=== PATIENT | female | born 1940 | race Caucasian/White ===

== ENCOUNTER 2021-08-10 11:24 | Outpatient (CLI) | payer MEDICARE, SELFPAY ==
[2021-08-10 19:25] LABS: Basophils Absolute Auto 0.1 K/mm3 (0.0-0.1); Basophils Percent Auto 0.9 % (0.2-1.2); Eosinophils Absolute Auto 0.3 K/mm3 (0-0.3); Eosinophils Percent Auto 3.5 % (0-4.4); Hematocrit 45.4 % (37.0-47.0); Hemoglobin 14.9 g/dL (12.0-15.0); Immature Granulocyte Absolute 0.02 K/mm3 (0.00-0.031); Immature Granulocyte Percent A 0.2 % (0-0.5); Lymphocytes Absolute Auto 2.76 K/mm3 (0.9-3.2); Lymphocytes Percent Auto 30.9 % (18.3-44.2); Mean Corpuscular HGB Conc 32.8 g/dl (32-36); Mean Corpuscular Hemoglobin 32.3 pg (26-34); Mean Corpuscular Volume 98.3 fl (80-100); Mean Platelet Volume 10.8 fl (7.4-10.4); Monocytes Absolute Auto 0.7 K/mm3 (0.1-0.6); Monocytes Percent Auto 7.7 % (2.6-8.5); Neutrophils Absolute Auto 5.1 K/mm3 (1.3-6.7); Neutrophils Percent Auto 56.8 % (45.5-73.1); Platelet Count Result 319 k/mm3 (150-375); Red Blood Count 4.62 M/mm3 (4.2-5.4); Red Cell Distribution Width 14.4 % (11.5-14.5); White Blood Count 8.9 K/mm3 (4.5-10.0)
[2021-08-10 19:45] LABS: Creatinine Urine 21.4 mg/dL
[2021-08-10 19:48] LABS: Add Urine Microscopic? YES; Appearance Urine Clear (Clear); Bacteria Urine Trace /hpf; Bilirubin Urine Negative (Negative); Blood Urine Negative (Negative); Color Urine Yellow (Yellow); Glucose Urine UA Negative (Negative); Ketones Urine Negative (Negative); Leukocyte Esterase Ur Negative LEU/UL (NEGATIVE); Nitrate Urine Negative (Negative); Protein Urine 1+ mg/dL (Negative); RBC Urine 0-2 /hpf (0-2); Specific Grav Ur 1.005 (1.001-1.035); Urobilinogen Urine Negative mg/dL (<2.0)
[2021-08-10 19:52] LABS: Alanine Aminotransferase 34 U/L (4-35); Albumin Level 5.2 g/dL (3.5-5.1); Alkaline Phosphatase 85 U/L (38-126); Anion Gap 14 mmol/L (8-16); Aspartate Amino Transferase 39 U/L (14-36); Bilirubin,Total 0.7 mg/dL (0.2-1.3); Blood Urea Nitrogen 14 mg/dL (7-17); Calcium 11.3 mg/dL (8.4-10.2); Carbon Dioxide 24 mmol/L (22-30); Chloride 103 mmol/L (98-107); Cholesterol 220 mg/dL (0-200); Estimated Glomerular Filt Rate > 60; Glucose 137 mg/dL (65-110); HDL Direct 80 mg/dL; Potassium 4.6 mmol/L (3.4-5.0); Sodium 141 mmol/L (137-145); Triglycerides 215 mg/dL (<150)
[2021-08-10 20:05] LABS: LDL Cholesterol Direct 101 mg/dL
[2021-08-10 20:16] LABS: MALB Creatinine Ratio 1700.5 mg/g (0-30); Microalbumin Urine Random 363.9 mg/L (0-16.7)
[2021-08-10 20:39] LABS: Hemoglobin A1C 6.8 % (<5.7)
== END 2021-08-10 11:25 | disposition home or self-care (01) ==
PROVIDERS: PCP Family Medicine; Visit Provider Family Medicine
DX: E11.9 Type 2 diabetes mellitus without complications (principal); E78.5 Hyperlipidemia, unspecified; I10 Essential (primary) hypertension; E03.9 Hypothyroidism, unspecified; N30.90 Cystitis, unspecified without hematuria
CPT/HCPCS: 36415; 80053; 80061; 81001; 82043; 83036; 84443; 85025; 87077; 87086; 87088; 87186

== ENCOUNTER 2021-09-02 10:26 | Outpatient (CLI) | payer MEDICARE, SELFPAY ==
[2021-09-02 19:45] LABS: Add Urine Microscopic? YES; Appearance Urine Cloudy (Clear); Bacteria Urine Trace /hpf; Bilirubin Urine Negative (Negative); Blood Urine Negative (Negative); Color Urine Amber (Yellow); Glucose Urine UA Negative (Negative); Ketones Urine Negative (Negative); Leukocyte Esterase Ur 2+ LEU/UL (NEGATIVE); Mucus Urine Rare /lpf; Nitrate Urine Negative (Negative); Protein Urine Negative (Negative); RBC Urine 0-2 /hpf (0-2); Urobilinogen Urine Negative mg/dL (<2.0); WBC Urine 31-50 /hpf (0-3)
== END 2021-09-02 10:27 | disposition home or self-care (01) ==
LOC: ANHBWCLAB 10:27
PROVIDERS: PCP Family Medicine; Visit Provider Family Medicine
DX: N30.90 Cystitis, unspecified without hematuria (principal)
CPT/HCPCS: 81001; 87077; 87086; 87186

== ENCOUNTER 2021-11-08 10:28 | Outpatient (CLI) | payer MEDICARE, SELFPAY ==
[2021-11-08 20:16] LABS: Add Urine Microscopic? YES; Appearance Urine Clear (Clear); Bilirubin Urine Negative (Negative); Blood Urine Negative (Negative); Color Urine Yellow (Yellow); Glucose Urine UA Negative (Negative); Ketones Urine Trace mg/dL (Negative); Leukocyte Esterase Ur Trace LEU/UL (NEGATIVE); Nitrate Urine Negative (Negative); Protein Urine Negative (Negative); Specific Grav Ur 1.025 (1.001-1.035); Urobilinogen Urine 0.2 mg/dL (<2.0); pH Urine 5.5 (5.0-9.0)
[2021-11-08 20:19] LABS: Hematocrit 42.9 % (37.0-47.0); Hemoglobin 13.4 g/dL (12.0-15.0); Mean Corpuscular HGB Conc 31.2 g/dl (32-36); Mean Corpuscular Hemoglobin 31.2 pg (26-34); Mean Platelet Volume 10.5 fl (7.4-10.4); Platelet Count Result 279 k/mm3 (150-375); Red Blood Count 4.29 M/mm3 (4.2-5.4); Red Cell Distribution Width 14.6 % (11.5-14.5); White Blood Count 6.3 K/mm3 (4.5-10.0)
[2021-11-08 20:25] LABS: Anion Gap 10 mmol/L (8-16); Blood Urea Nitrogen 25 mg/dL (7-17); Calcium 10.1 mg/dL (8.4-10.2); Carbon Dioxide 26 mmol/L (22-30); Chloride 102 mmol/L (98-107); Estimated Glomerular Filt Rate 53; Glucose 154 mg/dL (65-110); Potassium 4.6 mmol/L (3.4-5.0); Sodium 138 mmol/L (137-145)
[2021-11-08 20:26] LABS: Alanine Aminotransferase 25 U/L (6-35); Albumin Level 4.6 g/dL (3.5-5.1); Alkaline Phosphatase 76 U/L (38-126); Anion Gap 9 mmol/L (8-16); Aspartate Amino Transferase 28 U/L (14-36); Bilirubin,Total 0.5 mg/dL (0.2-1.3); Blood Urea Nitrogen 25 mg/dL (7-17); Calcium 10.2 mg/dL (8.4-10.2); Carbon Dioxide 28 mmol/L (22-30); Chloride 101 mmol/L (98-107); Estimated Glomerular Filt Rate 53; Glucose 154 mg/dL (65-110); Potassium 4.6 mmol/L (3.4-5.0); Sodium 138 mmol/L (137-145)
[2021-11-08 20:35] LABS: Parathyroid Intact 7.8 pg/mL (7.5-53.5)
[2021-11-12 05:29] LABS: Ionized Calcium 5.3 mg/dL (4.8-5.6)
[2021-11-18 12:07] LABS: Parathyroid Hormone Related Pr 12 pg/mL (11-20)
== END 2021-11-08 10:29 | disposition home or self-care (01) ==
PROVIDERS: PCP Family Medicine; Visit Provider Family Medicine
DX: E83.52 Hypercalcemia (principal); R79.89 Other specified abnormal findings of blood chemistry; R42 Dizziness and giddiness; N30.90 Cystitis, unspecified without hematuria
CPT/HCPCS: 36415; 80048; 80053; 81001; 82248; 82330; 83519; 83970; 85027; 87077; 87086; 87186

== ENCOUNTER 2022-04-13 09:51 | Outpatient (CLI) | payer MEDICARE, SELFPAY ==
--- NOTE | ~2022-04-13 | DEXA_ITS ---
Bone Density Report Name: CARLOS PAYTON Age: 81 Sex: Female Ethnicity: White Date of : 1940 Indication: postmenopausal; screening for osteoporosis; height loss; Referring Provider: AMILCAR VEGA Study: Bone densitometry was performed. Exam Date: April 13, 2022 Accession number: [id number] Bone Density: Region BMD T-score Z-score Classification AP Spine(L1-L4) 1.180 1.2 3.9 Normal Femoral Neck (Left) 0.785 -0.6 1.7 Normal Total Hip (Left) 0.850 -0.8 1.3 Normal Femoral Neck (Right) 0.663 -1.7 0.6 Osteopenia Total Hip (Right) 0.780 -1.3 0.7 Osteopenia Total Hip Mean 0.815 -1.1 1.0 Osteopenia World Health Organization criteria for BMD impression classify patients as: Normal (T-score at or above -1.0), Osteopenia (T-score between -1.0 and -2.5), or Osteoporosis (T-score at or below -2.5). 10-year Fracture Risk(1): Major Osteoporotic Fracture 14% Hip Fracture 3.4% Reported Risk Factors: [place] (), Neck BMD=0.663, BMI=28.8 (1) FRAX(R) Version 3.08. Fracture probability calculated for an untreated patient. Fracture probability may be lower if the patient has received treatment. Clinical Information Provided by Patient: Has used the following medications: Vitamin D Patient maximum height was 66 Menopause Age: 57 No regular weight bearing exercise Onset of menses at age 14 Number of children 4 Impression: The patient has low bone mass, based on the Right Femoral Neck T-score. The patient has an estimated ten-year risk of hip fracture of 3.4% and an estimated ten-year risk of major fracture of 14%, based on the WHO FRAX algorithm. Discussion: BONE DENSITY IS LOW AT ONE OR MORE SKELETAL SITES. THE PATIENT'S BMD AND CLINICAL RISK FACTORS CONTRIBUTE TO THIS PATIENT'S INCREASED RISK OF FRACTURE. This patient's lowest T-score is low at one or more skeletal sites. It meets the World Health Organization's (WHO) criteria for ?low bone mass? (T-score between -1.0 and -2.5). The patient's 10-year risk of hip fracture as calculated by FRAX exceeds the threshold where pharmacological therapy is recommended by the National Osteoporosis Foundation (NOF). However, all treatment decisions require clinical judgment and consideration of individual patient factors, including patient preferences, comorbidities, previous drug use, risk factors not captured in the FRAX model (e.g., frailty, falls, vitamin D deficiency, increased bone turnover, interval significant decline in bone density) and possible under or overestimation of fracture risk by FRAX. The patient should follow a healthful lifestyle (good nutrition with adequate calcium and vitamin D, and appropriate weight-bearing exercise). Follow-Up: Consider a repeat BMD and Vertebral Fracture Assessment (VFA) exam in 2 years
== END 2022-04-13 09:52 | disposition home or self-care (01) ==
PROVIDERS: PCP Family Medicine; Visit Provider Family Medicine
DX: Z78.0 Asymptomatic menopausal state (principal); M85.89 Other specified disorders of bone density and structure, multiple sites
CPT/HCPCS: 77080

== ENCOUNTER 2022-04-18 12:01 | Outpatient (CLI) | payer MEDICARE, SELFPAY ==
[2022-04-18 20:04] LABS: Hemoglobin A1C 6.8 % (<5.7)
[2022-04-18 20:09] LABS: Anion Gap 13 mmol/L (8-16); Blood Urea Nitrogen 15 mg/dL (7-17); Carbon Dioxide 29 mmol/L (22-30); Chloride 101 mmol/L (98-107); Estimated Glomerular Filt Rate 60; Glucose 72 mg/dL (65-110); Potassium 4.5 mmol/L (3.4-5.0); Sodium 143 mmol/L (137-145)
[2022-04-18 20:13] LABS: Add Urine Microscopic? YES; Appearance Urine Cloudy (Clear); Bilirubin Urine Negative (Negative); Blood Urine Negative (Negative); Color Urine Amber (Yellow); Glucose Urine UA Negative (Negative); Ketones Urine Negative (Negative); Leukocyte Esterase Ur Negative LEU/UL (NEGATIVE); Nitrate Urine Negative (Negative); Protein Urine Negative (Negative); RBC Urine 0-2 /hpf (0-2); Specific Grav Ur 1.012 (1.001-1.035); Squamous Epithelial Cell Urine Rare /hpf (Few); Urobilinogen Urine Negative mg/dL (<2.0)
[2022-04-18 20:39] LABS: Creatinine Urine 48.7 mg/dL
[2022-04-18 20:46] LABS: MALB Creatinine Ratio 60.6 mg/g (0-30); Microalbumin Urine Random 29.5 mg/L (0-16.7)
== END 2022-04-18 12:02 | disposition home or self-care (01) ==
LOC: ANHBWCLAB 12:02
PROVIDERS: PCP Family Medicine; Visit Provider Family Medicine
DX: E11.9 Type 2 diabetes mellitus without complications (principal); I10 Essential (primary) hypertension; R42 Dizziness and giddiness; N30.90 Cystitis, unspecified without hematuria
CPT/HCPCS: 36415; 80048; 81001; 82043; 83036; 84443; 87077; 87086; 87186

== ENCOUNTER 2022-08-11 11:14 | Outpatient (CLI) | payer MEDICARE, SELFPAY ==
[2022-08-11 19:07] LABS: Alanine Aminotransferase 30 U/L (6-35); Alkaline Phosphatase 81 U/L (38-126); Anion Gap 6 mmol/L (8-16); Aspartate Amino Transferase 77 U/L (14-36); Bilirubin,Total 0.8 mg/dL (0.2-1.3); Blood Urea Nitrogen 15 mg/dL (7-17); Calcium 9.3 mg/dL (8.4-10.2); Carbon Dioxide 31 mmol/L (22-30); Chloride 103 mmol/L (98-107); Cholesterol 234 mg/dL (0-200); Estimated Glomerular Filt Rate > 60; Glucose 130 mg/dL (65-110); HDL Direct 53 mg/dL; Potassium 3.9 mmol/L (3.4-5.0); Sodium 140 mmol/L (137-145); Triglycerides 266 mg/dL (<150)
[2022-08-11 19:18] LABS: LDL Cholesterol Direct 106 mg/dL
[2022-08-11 19:28] LABS: Hemoglobin A1C 6.7 % (<5.7)
[2022-08-11 19:34] LABS: MALB Creatinine Ratio 26.3 mg/g (0-30); Microalbumin Urine Random 19.7 mg/L (0-16.7)
[2022-08-11 20:05] LABS: Basophils Absolute Auto 0.1 K/mm3 (0.0-0.1); Basophils Percent Auto 0.8 % (0.2-1.2); Eosinophils Absolute Auto 0.3 K/mm3 (0-0.3); Eosinophils Percent Auto 4.2 % (0-4.4); Hematocrit 45.5 % (37.0-47.0); Hemoglobin 14.4 g/dL (12.0-15.0); Immature Granulocyte Absolute 0.01 K/mm3 (0.00-0.031); Immature Granulocyte Percent A 0.2 % (0-0.5); Lymphocytes Absolute Auto 2.44 K/mm3 (0.9-3.2); Mean Corpuscular HGB Conc 31.6 g/dl (32-36); Mean Corpuscular Hemoglobin 31.5 pg (26-34); Mean Corpuscular Volume 99.6 fl (80-100); Mean Platelet Volume 10.8 fl (7.4-10.4); Monocytes Absolute Auto 0.6 K/mm3 (0.1-0.6); Monocytes Percent Auto 9.8 % (2.6-8.5); Neutrophils Absolute Auto 2.9 K/mm3 (1.3-6.7); Platelet Count Result 293 k/mm3 (150-375); Red Blood Count 4.57 M/mm3 (4.2-5.4); Red Cell Distribution Width 14.1 % (11.5-14.5); White Blood Count 6.3 K/mm3 (4.5-10.0)
== END 2022-08-11 11:15 | disposition home or self-care (01) ==
PROVIDERS: PCP Family Medicine; Visit Provider Family Medicine
DX: Z00.00 Encounter for general adult medical examination without abnormal findings (principal); E11.9 Type 2 diabetes mellitus without complications; E03.9 Hypothyroidism, unspecified; R42 Dizziness and giddiness; R79.89 Other specified abnormal findings of blood chemistry; I10 Essential (primary) hypertension; E78.5 Hyperlipidemia, unspecified; M79.2 Neuralgia and neuritis, unspecified
CPT/HCPCS: 36415; 80053; 80061; 82043; 82607; 83036; 84443; 85025

== ENCOUNTER 2022-11-10 10:21 | Outpatient (CLI) | payer MEDICARE, SELFPAY ==
[2022-11-10 20:18] LABS: Creatinine Urine 124.9 mg/dL
[2022-11-10 20:23] LABS: MALB Creatinine Ratio 24.6 mg/g (0-30); Microalbumin Urine Random 30.7 mg/L (0-16.7)
[2022-11-10 21:07] LABS: Hemoglobin A1C 6.8 % (<5.7)
== END 2022-11-10 10:22 | disposition home or self-care (01) ==
LOC: ANHBWCLAB 10:22
PROVIDERS: PCP Family Medicine; Visit Provider Family Medicine
DX: E11.9 Type 2 diabetes mellitus without complications (principal); E03.9 Hypothyroidism, unspecified
CPT/HCPCS: 36415; 82043; 83036; 84443

== ENCOUNTER 2023-03-27 12:09 | Outpatient (CLI) | payer MEDICARE, SELFPAY ==
[2023-03-27 18:49] LABS: Appearance Urine Cloudy (Clear); Bacteria Urine 4+ /hpf; Bilirubin Urine Negative (Negative); Blood Urine Negative (Negative); Color Urine Yellow (Yellow); Glucose Urine UA Negative (Negative); Ketones Urine Negative (Negative); Leukocyte Esterase Ur 1+ LEU/UL (NEGATIVE); Nitrate Urine Negative (Negative); Non Pathogenic Casts 0-2; Protein Urine Negative (Negative); RBC Urine 0-2 /hpf (0-2); Specific Grav Ur 1.012 (1.001-1.035); Squamous Epithelial Cell Urine None seen /hpf (Few); Urobilinogen Urine 0.2 mg/dL (<2.0); WBC Urine 51-100 /hpf (0-3)
[2023-03-27 18:50] LABS: Alanine Aminotransferase 28 U/L (6-35); Albumin Level 4.7 g/dL (3.5-5.1); Alkaline Phosphatase 65 U/L (38-126); Anion Gap 8 mmol/L (8-16); Aspartate Amino Transferase 58 U/L (14-36); Bilirubin,Total 0.7 mg/dL (0.2-1.3); Blood Urea Nitrogen 17 mg/dL (7-17); Calcium 11.2 mg/dL (8.4-10.2); Carbon Dioxide 32 mmol/L (22-30); Chloride 100 mmol/L (98-107); Estimated Glomerular Filt Rate 60; Glucose 75 mg/dL (65-110); Potassium 4.1 mmol/L (3.4-5.0); Sodium 140 mmol/L (137-145)
[2023-03-27 18:56] LABS: Add Urine Microscopic? YES
[2023-03-27 19:18] LABS: Creatinine Urine 64.2 mg/dL
[2023-03-27 19:23] LABS: MALB Creatinine Ratio 52.5 mg/g (0-30); Microalbumin Urine Random 33.7 mg/L (0-16.7)
[2023-03-27 19:55] LABS: Hematocrit 44.7 % (37.0-47.0); Mean Corpuscular HGB Conc 31.3 g/dl (32-36); Mean Corpuscular Hemoglobin 31.8 pg (26-34); Mean Corpuscular Volume 101.6 fl (80-100); Platelet Count Result 304 k/mm3 (150-375); Red Cell Distribution Width 14.1 % (11.5-14.5); White Blood Count 7.2 K/mm3 (4.5-10.0)
[2023-03-27 20:17] LABS: Hemoglobin A1C 6.6 % (<5.7)
== END 2023-03-27 12:10 | disposition home or self-care (01) ==
PROVIDERS: PCP Family Medicine; Visit Provider Family Medicine
DX: E11.9 Type 2 diabetes mellitus without complications (principal); E03.9 Hypothyroidism, unspecified; R42 Dizziness and giddiness; Z79.899 Other long term (current) drug therapy
CPT/HCPCS: 36415; 80053; 81001; 82043; 83036; 84443; 85027; 87077; 87086; 87186

== ENCOUNTER → 2023-04-08 10:39 | Outpatient (CLI) | payer MEDICARE, SELFPAY ==
--- NOTE | ~2023-04-08 | US_ITS ---
US abdomen limited DATE: 04/08/2023 10:57 INDICATION: Elevated liver function tests TECHNIQUE: Real-time imaging of liver, pancreas, gallbladder COMPARISON: None FINDINGS: No hepatic or pancreatic space-occupying mass lesion is detected. Normal hepatopedal portal venous flow. No gallstones or gallbladder wall thickening or abnormal pericholecystic fluid collection. Negative s onographic Hansen's sign. The common bile duct measures 6.5 mm, at upper limits of normal. IMPRESSION: No significant abnormality Reviewed, dictated and finalized at Location A. Reviewed, dictated and finalized at location A. IMPRESSION: No significant abnormality
== END ==
PROVIDERS: PCP Family Medicine; Visit Provider Family Medicine
DX: R79.89 Other specified abnormal findings of blood chemistry (principal)
CPT/HCPCS: 76705

== ENCOUNTER 2023-10-16 12:12 | Outpatient (CLI) | payer MEDICARE, SELFPAY ==
--- NOTE | ~2023-10-16 | XR_ITS ---
Right Knee Technique: AP, lateral, and sunrise views were obtained. Clinical History: Pain Findings: No fracture or dislocation is seen. Osseous alignment is anatomic. There is mild spurring a t the medial joint line and patella. Soft tissues are unremarkable. No joint effusion is seen. Impression: Mild degenerative spurring, as above. Reviewed, dictated and finalized at location . Impression: Mild degenerative spurring, as above.
[2023-10-16 19:21] LABS: Hematocrit 44.6 % (37.0-47.0); Hemoglobin 14.2 g/dL (12.0-15.0); Mean Corpuscular HGB Conc 31.8 g/dl (32-36); Mean Corpuscular Hemoglobin 31.5 pg (26-34); Mean Corpuscular Volume 98.9 fl (80-100); Mean Platelet Volume 10.6 fl (7.4-10.4); Platelet Count Result 294 k/mm3 (150-375); Red Blood Count 4.51 M/mm3 (4.2-5.4); Red Cell Distribution Width 14.1 % (11.5-14.5); White Blood Count 7.5 K/mm3 (4.5-10.0)
[2023-10-16 19:56] LABS: Vitamin D 25 Hydroxy 51.9 ng/mL
[2023-10-16 20:37] LABS: Appearance Urine Cloudy (Clear); Bacteria Urine 4+ /hpf; Bilirubin Urine Negative (Negative); Blood Urine Non-Hemolyzed Trace (Negative); Color Urine Yellow (Yellow); Glucose Urine UA Negative (Negative); Ketones Urine Negative (Negative); Leukocyte Esterase Ur 2+ LEU/UL (Negative); Nitrate Urine Negative (Negative); Non Pathogenic Casts 0-2; Protein Urine Negative (Negative); RBC Urine 0-2 /hpf (0-2); Specific Grav Ur 1.014 (1.001-1.035); Squamous Epithelial Cell Urine None Seen /hpf (Few); Urobilinogen Urine 0.2 mg/dL (<2.0); WBC Urine >100 /hpf (0-3); pH Urine 6.5 (5.0-9.0)
[2023-10-16 20:42] LABS: Add Urine Microscopic? YES
[2023-10-16 21:09] LABS: MALB Creatinine Ratio 47.5 mg/g (0-30); Microalbumin Urine Random 39.4 mg/L (0-16.7)
[2023-10-16 21:10] LABS: Alanine Aminotransferase 25 U/L (6-35); Albumin Level 4.9 g/dL (3.5-5.1); Alkaline Phosphatase 65 U/L (38-126); Anion Gap 10 mmol/L (4-12); Aspartate Amino Transferase 62 U/L (14-36); Bilirubin,Total 0.6 mg/dL (0.2-1.3); Blood Urea Nitrogen 17 mg/dL (7-17); Calcium 10.9 mg/dL (8.4-10.2); Carbon Dioxide 28 mmol/L (22-30); Chloride 104 mmol/L (98-107); Cholesterol 211 mg/dL (0-200); Estimated Glomerular Filt Rate 60; Glucose 64 mg/dL (65-110); HDL Direct 55 mg/dL; Sodium 142 mmol/L (137-145); Triglycerides 297 mg/dL (<150)
[2023-10-16 21:21] LABS: Free T4 Free Thyroxine 1.04 ng/mL (0.78-2.19); LDL Cholesterol Direct 105 mg/dL
[2023-10-16 23:04] LABS: Hemoglobin A1C 6.6 % (<5.7)
[2023-10-18 13:14] LABS: Ionized Calcium 5.5 mg/dL (4.7-5.5)
== END 2023-10-16 12:13 | disposition home or self-care (01) ==
LOC: ANHBWCLAB 12:14
PROVIDERS: PCP Nurse Practitioner Adult Health; Visit Provider Family Medicine
DX: M25.361 Other instability, right knee (principal); M25.362 Other instability, left knee; E03.9 Hypothyroidism, unspecified; E11.9 Type 2 diabetes mellitus without complications; E78.5 Hyperlipidemia, unspecified; E83.52 Hypercalcemia; I10 Essential (primary) hypertension; M79.2 Neuralgia and neuritis, unspecified; R42 Dizziness and giddiness; R79.89 Other specified abnormal findings of blood chemistry; N39.0 Urinary tract infection, site not specified; Z79.899 Other long term (current) drug therapy
CPT/HCPCS: 36415; 73562; 80053; 80061; 81001; 82043; 82306; 82330; 83036; 84439; 84443; 85027; 87077; 87086; 87088; 87186

== ENCOUNTER 2024-01-15 10:34 | Outpatient (CLI) | payer MEDICARE, SELFPAY ==
[2024-01-15 20:00] LABS: Alanine Aminotransferase 28 U/L (6-35); Albumin Level 4.7 g/dL (3.5-5.1); Alkaline Phosphatase 61 U/L (38-126); Anion Gap 9 mmol/L (4-12); Aspartate Amino Transferase 75 U/L (14-36); Bilirubin,Total 0.7 mg/dL (0.2-1.3); Blood Urea Nitrogen 14 mg/dL (7-17); Calcium 10.4 mg/dL (8.4-10.2); Carbon Dioxide 31 mmol/L (22-30); Chloride 99 mmol/L (98-107); Cholesterol 198 mg/dL (0-200); Estimated Glomerular Filt Rate 60; Glucose 144 mg/dL (65-110); HDL Direct 55 mg/dL; Potassium 4.3 mmol/L (3.4-5.0); Sodium 139 mmol/L (137-145); Triglycerides 320 mg/dL (<150)
[2024-01-15 20:11] LABS: LDL Cholesterol Direct 98 mg/dL
[2024-01-15 22:14] LABS: Vitamin D 25 Hydroxy 60.6 ng/mL
[2024-01-15 22:27] LABS: Creatinine Urine 106.7 mg/dL
[2024-01-15 22:31] LABS: MALB Creatinine Ratio 7.3 mg/g (0-30); Microalbumin Urine Random 7.8 mg/L (0-16.7)
== END 2024-01-15 10:35 | disposition home or self-care (01) ==
PROVIDERS: PCP Nurse Practitioner Adult Health; Visit Provider Nurse Practitioner Adult Health
DX: E03.9 Hypothyroidism, unspecified (principal); E11.9 Type 2 diabetes mellitus without complications; R53.83 Other fatigue; Z79.899 Other long term (current) drug therapy
CPT/HCPCS: 36415; 80053; 80061; 82043; 82306; 82565; 83036; 84443

== ENCOUNTER 2024-07-22 11:04 | Outpatient (CLI) | payer MEDICARE, SELFPAY ==
[2024-07-22 20:07] LABS: Add Urine Microscopic? YES; Appearance Urine Cloudy (Clear); Bacteria Urine 4+ /hpf; Bilirubin Urine Negative (Negative); Blood Urine Non-Hemolyzed Trace (Negative); Color Urine Yellow (Yellow); Glucose Urine UA Negative (Negative); Ketones Urine Negative (Negative); Leukocyte Esterase Ur 2+ LEU/UL (Negative); Nitrate Urine Negative (Negative); Non Pathogenic Casts 0-2; Protein Urine Negative (Negative); RBC Urine 0-2 /hpf (0-2); Specific Grav Ur 1.012 (1.001-1.035); Squamous Epithelial Cell Urine Occasional /hpf (Few); Urobilinogen Urine 0.2 mg/dL (<2.0); WBC Urine 51-100 /hpf (0-3); pH Urine 5.5 (5.0-9.0)
[2024-07-22 20:19] LABS: Alanine Aminotransferase 21 U/L (6-35); Albumin Level 4.5 g/dL (3.5-5.1); Alkaline Phosphatase 73 U/L (38-126); Anion Gap 10 mmol/L (4-12); Aspartate Amino Transferase 40 U/L (14-36); Bilirubin,Total 0.7 mg/dL (0.2-1.3); Blood Urea Nitrogen 19 mg/dL (7-17); Calcium 10.3 mg/dL (8.4-10.2); Carbon Dioxide 31 mmol/L (22-30); Chloride 99 mmol/L (98-107); Cholesterol 189 mg/dL (0-200); Estimated Glomerular Filt Rate > 60; Glucose 160 mg/dL (65-110); HDL Direct 54 mg/dL; Potassium 4.5 mmol/L (3.4-5.0); Sodium 140 mmol/L (137-145); Triglycerides 182 mg/dL (<150)
[2024-07-22 20:30] LABS: LDL Cholesterol Direct 108 mg/dL
[2024-07-22 20:49] LABS: Creatinine Urine 54.7 mg/dL
[2024-07-22 20:49] LABS: Thyroid Stimulating Hormone 0.061 uIU/mL (0.465-4.680)
[2024-07-22 20:54] LABS: Microalbumin Urine Random 25.7 mg/L (0-16.7)
[2024-07-22 21:07] LABS: Hemoglobin A1C 7.1 % (<5.7)
--- OUTSIDE RECORDS SUMMARY | 2024-07-25 12:57 | XMS_ITS | Encounter Summary ---
Author Organization [facility] Address [address] [facility] [place] [address] Phone Care Team Providers Care Chemistry Technician Name Role Phone Isai Vazquez MD Primary Care Provider [phone] Henry Amor MD Primary Care Provider [phone] Reason for Visit * Reason Comments Medication Refill Encounter Details Date Type Department Care Team (Late st Contact Info) Description 11/22/2021 [facility]ill [facility] [address]2 [place] [address] Marianne Elias MD [address] [place] [address] Medication Refill Social History Tobacco Use Types Packs/Day Years Used Date Smoking Tobacco: Former Cigarettes Q uit: 1980 Smokeless Tobacco: Never Alcohol Use Standard Drinks/Week Comments Not Currently 0 (1 standard drink = 0.6 oz pur e alcohol) PHQ-2 Answer Date Recorded Total Score - Questions 1-9 0 08/04 Sexually Active Control Partners Comments Not Currently Comments No Sex and Gender Information Value Date Recorded Sex Assigned at Not on file Legal Sex Female 12:34 AM CDT Gender Identity Not on file Sexual Orientation Not on file documented as of this encounter Miscellaneous Notes * Telephone Encounter - Elizabeth Turner RN - 11/23/2021 8:48 AM CDT PCP Isai Vazquez MD documented in this encounter Plan of Treatment Not on file documented as of this encounter Visit Diagnoses Not on filedocumented in this encounter Additional Health Concerns Assessment Noted Time PHQ-9 Depression Total Score: 0 08/25/19 21 11:00 AM PRODUCT MANAGEMENT INTERN documented as of this encounter Care Teams Chemistry Technician Relationship Specialty Start Date End Date Isai Vazquez MD [address] [place] [address] [facility] [address] [place] [address] PCP - General Family Medicine 05/18/21 08/24/23 Henry Amor MD [address] [place] [address] PCP - General Family Medicine 08/25/23 documented as of this encounter
--- OUTSIDE RECORDS SUMMARY | 2024-07-25 12:57 | XMS_ITS | Clinical Summary ---
Author Organization [facility] Address [address] [place] [address] Phone Care Team Providers Care Med Asst Name Role Phone Henry Amor MD Primary Care Provider [phone] Allergies No known active allergies Medications Aspirin 81 MG Tablet Take 81 mg by mouth daily. Active [place]ver-3 Fatty Acids (FISH OIL PO) Take 120-180 mg by mouth daily. Active Cholecalciferol (VITAMIN D-3 PO) Take by mouth. Active Multiple Vitamins-Minera ls (MULTIVITAMIN PO) Take by mouth. Active Ascorbic Acid (VITAMIN C PO) Take by mouth. Active Docusate Calcium (STOOL SOFTENER PO) Take by mouth. Active furosemide (LASIX) 20 MG Tablet Take 1 Tab by mouth daily as needed. For leg swelling 90 Tab 3 05/21/2020 Active gabapentin (NEURONTIN) 300 MG Capsule TAKE 1 CAPSULE BY MOUTH EVERY NIGHT 90 Cap 07/06/2020 Active metoprolol tartrate (LOPRESSOR) 25 MG Tablet TAKE 1 TABLET BY MOUTH EVERY DAY 90 Tab 08/03/2020 Active OneTouch Delica Lancets 33G Misc Test once daily 02/08/2016 Active simvastatin (ZOCOR) 20 MG Tablet TAKE 1 TABLET BY MOUTH EVERY DAY IN THE EVENING 90 Tablet 2 03/15/2021 Active levothyroxine (SYNTHROID) 50 MCG Tablet TAKE 1 TABLET BY MOUTH EVERY DAY 90 Tablet 2 03/15/2021 Active pioglitazone (ACTOS) 15 MG Tablet TAKE 1 TABLET BY MOUTH EVERY DAY 90 Tablet 1 04/12/2021 Active amLODIPine (NORVASC) 5 MG Tablet TAKE 1 TABLET BY MOUTH EVERY DAY 90 Tablet 05/03/2021 Active lisinopril (PRINIVIL, ZESTRIL) 10 MG Tablet TAKE 1 TABLET BY MOUTH EVERY DAY 90 Tablet 1 05/03/2021 Active metFORMIN (GLUCOPHAGE) 1000 MG Tablet TAKE 1 TABLET BY MOUTH TWICE A DAY WITH MEALS 180 Tablet 1 05/05/2021 Active glipiZIDE (GLUCOTROL) 10 MG Tablet TAKE 1 TABLET BY MOUTH TWICE A DAY WITH MEALS 180 Tablet 05/18/2021 Active Active Problems Problem Noted Date Diagnosed Date Diabetic peripheral neuropat hy associated with type 2 diabetes mellitus 07/17/2019 Dyslipidemia 07/17/2019 Hypothyroidism HTN (hypertension) High urine 2,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 DM (diabetes mellitus) Vitamin D deficiency Osteopenia Immunizations Immunization Administration Dates Next Due Covid-19, Mrna, Lnp-s, Pf, 3 0 Mcg/0.3 Ml Dose (AlphaStripe) 09/21/2020,08/31/2020 Influenza Vaccine 04/16/2020, 0,03/26/2018,2014 Influenza Vaccine greater than 3 yrs 03/26/2018, 03/03/2014 Influenza, Injectable, Quadrivalent 03/11/2017 Influenza, Intradermal, Quad rivalent, Preservative Free 03/22/2016,03/16/2015 Influenza, Seasonal, Injecta ble, Undefined 03/03/2014,01/28/2014 Influenza, Trivalent, Adjuvanted, PF 02/21/2019 Influenza, high-dose, trivalent, PF 03/26/2018,0 03/11/2017,03/09/2016 Pneumococcal Vaccine - 13 Valent 02/20/2017 Pneumococcal Vaccine Adult - 23 Valent 03/26/2018,07/03/2008 TD VACCINE 04/02/2010 TDAP Vaccine 03/26/2018 Social History Tobacco Use Types Packs/Day Years Used Date Smoking Tobacco: Former Cigarettes Q uit: 1980 Smokeless Tobacco: Never Tobacco Cessation:Counseling Given: No Alcohol Use Standard Drinks/Week Comments Not Currently [...] on file Sexual Orientation Not on file Last Filed Vital Signs Vital Sign Reading Time Taken Comments Blood Pressure 120/62 08/25/2020 11:26 AM DERIVATIVES TRADER Pulse 60 08/25/2020 11:26 AM DERIVATIVES TRADER Temperature 36.8 ??C (98.2 ??F) 08/25/2020 1 1:26 AM DERIVATIVES TRADER Respiratory Rate 18 08/25/2020 11:2 6 AM DERIVATIVES TRADER Oxygen Saturation 98% 08/25/2020 11: 26 AM DERIVATIVES TRADER Inhaled Oxygen Concentration - - Weight 81.5 kg (179 lb 11.2 oz) 021 11:26 AM DERIVATIVES TRADER Height 165.1 cm (5' 5 ) 08/25/2020 11:2 6 AM DERIVATIVES TRADER Body Mass Index 29.9 08/25/2020 11:26 AM DERIVATIVES TRADER Plan of Treatment Health Maintenance Due Date Last Done Comments DEXA Bone Density 1940 Diabetes: Eye Exam 1940 Diabetes: Foot Exam 1940 Hepatitis C Virus (HCV) Screening 1940 Zoster Immunization (1 of 2) 1992 Respiratory Syncytial Virus (RSV) Immunization (Adult) (1 - 1-dose 75+ series) 2017 Diabetes: Hemoglobin A1c 11/15/2020 020, 01/24/2020, 11/06/2019, Additional history exists Diabetes: Nephropathy Screening 05/18/2021 05/18/2020, 01/24/2020, 11/06/2019, Additional history exists Influenza Immunization (#1) 03/03/202404/02, 04/18/2022, 04/19/2021, Additional history exists SARS-COV-2 Immunization ( season) 2024 05/24/2021, 09/21/2020, 08/31/2020 DTaP/Tdap/Td Immunization Discontinued 03/26/2018, 07/2009 Pneumococcal Immunization (50+ years) Completed 03/26/2018, 02/20/2017, 07/03/2008 Pneumococcal Immunization Combined Discontinued 03/26/2018, 02/20/2017, 07/03/2008 Hepatitis B Immunization Aged Out No longer eligible based on patient's age to complete this topic Meningococcal Immunization (ACWY) Aged Out No longer eligible based on patient's age to complete this topic Rotavirus Immunization Aged Out No lo nger eligible based on patient's age to complete this topic Procedures Procedure Name Priority Date/Time Associated Diagnosis Comments CMP (COMPREHENSIVE METABOLIC PANEL) Routine 05/18/2020 Type 2 diabetes mellitus without complication, unspecified whether shelter insulin use (HCC) HEMOGLOBIN A1C W/ ESTIMATED GLUCOSE Routine 05/18/2020 Type 2 diabetes mellitus without complication, unspecified whether buttermaker helper insulin use (HCC) from Last 3 Months or Most Recently Relevant to Health Maintenance Results * HEMOGLOBIN A1C W/ ESTIMATED GLUCOSE (05/18/2020) HGB-A1C 7.2 % Blood 05/18/2020 us Marianne Elias MD CHEMISTRY ORDERABLES Edited Result - Final * CMP (COMPREHENSIVE METABOLIC PANEL) (05/18/2020) Blood us Marianne Elias MD CHEMISTRY ORDERABLES Final Result from Last 3 Months or Most Recently Relevant to Health Maintenance Insurance MEDICARE C AETNA Care Teams Med Asst Relationship Specialty Start Date End Date Henry Amor MD [address] [place] [address] PCP - General Family Medicine 08/25/23
--- OUTSIDE RECORDS SUMMARY | 2024-07-25 12:57 | XMS_ITS | Encounter Summary ---
Author Organization [facility] Address [address] [facility] [place] [address] Phone Care Team Providers Care Spudder Name Role Phone Isai Vazquez MD Primary Care Provider [phone] Henry Amor MD Primary Care Provider [phone] Reason for Visit * Reason Comments Medication Refill Encounter Details Date Type Department Care Team (Late st Contact Info) Description 12/13/2021 Refill [facility] [address] [place] [address] Marianne Elias MD [address] [place] [address] Medication Refill Social History Tobacco Use Types [...] Telephone Encounter - Elizabeth Turner RN - 12/13/2021 2:[address] Vazquez documented in this encounter Plan of Treatment Not on file documented as of this encounter Visit Diagnoses Not on filedocumented in this encounter Additional Health Concerns Assessment Noted Time PHQ-9 Depression Total Score: 0 08/25/19 21 11:00 AM 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
--- OUTSIDE RECORDS SUMMARY | 2024-07-25 12:58 | XMS_ITS | Encounter Summary ---
Author Organization [facility] Address [address] [facility] [place] [address] Phone Care Team Providers Care Chief Crna Name Role Phone Isai Vazquez MD Primary Care Provider [phone] Henry Amor MD Primary Care Provider [phone] Reason for Visit * Reason Comments Medication Refill Encounter Details Date Type Department Care Team (Late st Contact Info) Description 10/10/2021 Refill [facility] [address] [place] [address] Marianne Elias MD [address] [place] [address] Medication Refill Social History Tobacco Use Types [...] Telephone Encounter - Elizabeth Turner RN - 10/11/2021 10:14 AM CDT PCP is listed as Isai Vazquez MD documented in this encounter Plan of Treatment Not on file documented as of this encounter Visit Diagnoses Not on filedocumented in this encounter Additional Health Concerns Assessment Noted Time PHQ-9 Depression Total Score: 0 08/25/19 21 11:00 AM HYDROPRESS OPERATOR documented as of this encounter Care Teams Chief Crna Relationship Specialty Start Date End Date Isai Vazquez MD 4 [facility] [address] [address] PCP - General Family Medicine 05/18/21 08/24/23 Henry Amor MD [address] [place] [address] PCP - General Family Medicine 08/25/23 documented as of this encounter
--- OUTSIDE RECORDS SUMMARY | 2024-07-25 12:58 | XMS_ITS | Encounter Summary ---
Author Organization [facility] Address [address] [facility] [place] [address] Phone Care Team Providers Care Tipple Boss Name Role Phone Isai Vazquez MD Primary Care Provider [phone] Henry Amor MD Primary Care Provider [phone] Reason for Visit * Reason Comments Medication Refill Encounter Details Date Type Department Care Team (Late st Contact Info) Description 11/07/2021 Refill [facility] Family Medicine [facility] [address] [place] [address] Marianne Elias MD [address] [place] [address] Medication Refill Social History Tobacco Use Types [...] Telephone Encounter - Elizabeth Turner RN - 11/08/2021 11:22 AM CDT PCP is listed as Isai Vazquez MD documented in this encounter Plan of Treatment Not on file documented as of this encounter Visit Diagnoses Not on filedocumented in this encounter Additional Health Concerns Assessment Noted Time PHQ-9 Depression Total Score: 0 08/25/19 21 11:[address]ORDER documented as of this encounter Care Teams Tipple Boss Relationship Specialty Start Date End Date Isai Vazquez MD 4 [facility] [address] [address] PCP - General Family Medicine 05/18/21 08/24/23 Henry Amor MD [address] [place] [address] PCP - General Family Medicine 08/25/23 documented as of this encounter
== END 2024-07-22 11:05 | disposition home or self-care (01) ==
PROVIDERS: PCP Nurse Practitioner Adult Health; Visit Provider Nurse Practitioner Adult Health
DX: E11.9 Type 2 diabetes mellitus without complications (principal); E03.9 Hypothyroidism, unspecified; N39.0 Urinary tract infection, site not specified; R39.9 Unspecified symptoms and signs involving the genitourinary system
CPT/HCPCS: 36415; 80053; 80061; 81001; 82043; 82565; 83036; 84443; 87086; 87186

== ENCOUNTER 2024-07-31 12:59 | Outpatient (CLI) | payer MEDICARE, SELFPAY ==
--- OUTSIDE RECORDS SUMMARY | 2024-07-31 14:01 | XMS_ITS | Encounter Summary ---
Author Organization [facility] Address [address] [place] [address] Phone Care Team Providers Care Sql Server Dba Developer Name Role Phone Isai Vazquez MD Primary Care Provider [phone] Henry Amor MD Primary Care Provider [phone] Reason for Visit * Reason Comments Medication Refill Encounter Details Date Type Department Care Team (Late st Contact Info) Description 11/22/2021 Refill [facility] Family Medicine [facility] [address] [place] [address] Marianne Elias MD [address] [place] [address] Medication Refill Social History Tobacco Use Types [...] Total Score: 0 08/25/19 21 11:00 AM CIVIL PREPAREDNESS OFFICER documented as of this encounter Care Teams Sql Server Dba Developer Relationship Specialty Start Date End Date Isai Vazquez MD [address] [place] [address] [facility] [address] [place] [address] PCP - General Family Medicine 05/18/21 08/24/23 Henry Amor MD [address] [place] [address] PCP - General Family Medicine 08/25/23 documented as of this encounter
--- OUTSIDE RECORDS SUMMARY | 2024-07-31 14:01 | XMS_ITS | Encounter Summary ---
Author Organization [facility] Address [address] [facility] [place] [address] Phone Care Team Providers Care Conveyor Tender Name Role Phone Isai Vazquez MD Primary Care Provider [phone] Henry Amor MD Primary Care Provider [phone] Reason for Visit * Reason Comments Medication Refill Encounter Details Date Type Department Care Team (Late st Contact Info) Description 11/07/2021 Refill [facility] - Family Medicine [facility] [address] [place] [address] Marianne Elias MD [address] [place] [address] Medication Refill Social History Tobacco Use Types [...] Total Score: 0 08/25/19 21 11:00 AM ECLECTIC DOCTOR documented as of this encounter Care Teams Conveyor Tender Relationship Specialty Start Date End Date Isai Vazquez MD 4 [facility] [address] [address] PCP - General Family Medicine 05/18/21 08/24/23 Henry Amor MD [address] [place] [address] PCP - General Family Medicine 08/25/23 documented as of this encounter
--- OUTSIDE RECORDS SUMMARY | 2024-07-31 14:01 | XMS_ITS | Encounter Summary ---
Author Organization [facility] Address [address] [facility] [place] [address] Phone Care Team Providers Care Vamp Marker Name Role Phone Isai Vazquez MD Primary Care Provider [phone] Henry Amor MD Primary Care Provider [phone] Reason for Visit * Reason Comments Medication Refill Encounter Details Date Type Department Care Team (Late st Contact Info) Description 10/10/2021 Refill [facility] - Family Medicine [facility] [address] [place] [address] Marianne Elias MD [address] [place] [address] Medication Refill Social History Tobacco Use Types [...] Total Score: 0 08/25/19 21 11:00 AM SIGNAL APPRENTICE documented as of this encounter Care Teams Vamp Marker Relationship Specialty Start Date End Date Isai Vazquez MD 4 [facility] [address] [address] PCP - General Family Medicine 05/18/21 08/24/23 Henry Amor MD [address] [place] [address] PCP - General Family Medicine 08/25/23 documented as of this encounter
--- OUTSIDE RECORDS SUMMARY | 2024-07-31 14:01 | XMS_ITS | Clinical Summary ---
Author Organization [facility] Address [address] [place] [address] Phone Care Team Providers Care Senior Business Broker Name Role Phone Henry Amor MD Primary Care Provider [phone] Allergies No known active allergies Medications Aspirin 81 MG Tablet Take 81 mg by mouth daily. Active [place]-3 Fatty Acids (FISH OIL PO) Take 120-180 [...] Lnp-s, Pf, 3 0 Mcg/0.3 Ml Dose ([employer]) 09/21/2020,08/31/2020 Influenza Vaccine 04/16/2020, 0,03/26/2018,2014 Influenza Vaccine [...] Comments Blood Pressure 120/62 08/25/2020 11:[address] INSPECTOR Pulse 60 08/25/2020 11:[address] Temperature 36.8 ??C (98.2 ??F) 08/25/2020 1 1:[address] INSPECTOR Respiratory Rate 18 08/25/2020 11:[address] Oxygen Saturation 98% 08/25/2020 11: [address] INSPECTOR Inhaled Oxygen Concentration - - Weight 81.5 kg (179 lb 11.2 oz) 021 11:[address] Height 165.1 cm (5' 5 ) 08/25/2020 11:[address] Body Mass Index 29.9 08/25/2020 11:[address]PECTOR Plan of Treatment Health Maintenance Due Date [...] 2 diabetes mellitus without complication, unspecified whether longterm insulin use (HCC) HEMOGLOBIN A1C W/ ESTIMATED GLUCOSE Routine 05/18/2020 Type 2 diabetes mellitus without complication, unspecified whether manager intermediate insulin use (HCC) from Last 3 Months [...] to Health Maintenance Insurance MEDICARE C AETNA Member Subscriber Plan / Payer (Ef fective 2021-Present) Name:Sandi Nathan Relation to Subscriber:Self Name:Sandi Nathan Payer ID:[id number] (NAIC) Type:Not on file Address: [facility] [id number] [place] [id number] Care Teams Senior Business Broker Relationship Specialty Start Date End Date Henry Amor MD [address] [place] [address] PCP - General Family Medicine 08/25/23
--- OUTSIDE RECORDS SUMMARY | 2024-07-31 14:01 | XMS_ITS | Encounter Summary ---
Author Organization [facility] Address [address] [place] [address] Phone Care Team Providers Care Commercial Real Estate Associate Name Role Phone Isai Vazquez MD Primary Care Provider [phone] Henry Amor MD Primary Care Provider [phone] Reason for Visit * Reason Comments Medication Refill Encounter Details Date Type Department Care Team (Late st Contact Info) Description 12/13/2021 Refill [facility] Family Medicine [facility] [address] [place] [address] Marianne Elias MD [address] [place] [address] Medication Refill Social History Tobacco Use Types [...] Total Score: 0 08/25/19 21 11:00 AM ORTHOTIC FITTER documented as of this encounter Care Teams Commercial Real Estate Associate Relationship Specialty Start Date End Date Isai Vazquez MD 4 [facility] [address] [address] PCP - General Family Medicine 05/18/21 08/24/23 Henry Amor MD [address] [place] [address] PCP - General Family Medicine 08/25/23 documented as of this encounter
[2024-07-31 20:53] LABS: Thyroid Stimulating Hormone 0.071 uIU/mL (0.465-4.680)
== END 2024-07-31 13:00 | disposition home or self-care (01) ==
PROVIDERS: PCP Nurse Practitioner Adult Health; Visit Provider Nurse Practitioner Adult Health
DX: E03.9 Hypothyroidism, unspecified (principal)
CPT/HCPCS: 36415; 84443

== ENCOUNTER 2024-09-18 08:54 | Outpatient (CLI) | payer MEDICARE, SELFPAY ==
--- OUTSIDE RECORDS SUMMARY | 2024-09-18 09:33 | XMS_ITS | Encounter Summary ---
Author Organization [facility] Address [address] [facility] [place] [address] Phone Care Team Providers Care Director Of Consumer Marketing Name Role Phone Isai Vazquez MD Primary Care Provider [phone] Henry Amor MD Primary Care Provider [phone] Nancy Flores APRN Primary Care Provider [phone] Reason for Visit * Reason Comments Medication Refill Encounter Details Date Type Department Care Team (Late st Contact Info) Description 11/07/2021 Refill [facility] Family Medicine [facility] [address] [place] [address] Marianne Elias MD [address] [place] [address] Medication Refill Social History Tobacco Use Types [...] Time PHQ-9 Depression Total Score: 0 08/25/19 11:00 AM TUNNEL WORKER documented as of this encounter Care Teams Director Of Consumer Marketing Relationship Specialty Start Date End Date Isai Vazquez MD 4 [facility] [address] [place] [address] PCP - General Family Medicine 05/18/21 08/24/23 Henry Amor MD [address] [place] [address] PCP - General Family Medicine 08/25/23 08/04/24 Nancy Flores APRN [address] [place] [address] PCP - General Advanced Practice Nurse 08/05/24 documented as of this encounter
--- OUTSIDE RECORDS SUMMARY | 2024-09-18 09:33 | XMS_ITS | Encounter Summary ---
Author Organization [facility] Address [address] [facility] [place] [address] Phone Care Team Providers Care International Logistics Manager Name Role Phone Isai Vazquez MD Primary Care Provider [phone] Henry Amor MD Primary Care Provider [phone] Nancy Flores APRN Primary Care Provider [phone] Reason for Visit * Reason Comments Medication Refill Encounter Details Date Type Department Care Team (Late st Contact Info) Description 10/10/2021 [facility]ill [facility] [address]2 [place] [address] Marianne Elias MD #2 [place] [address] Medication Refill Social History Tobacco Use Types [...] Depression Total Score: 0 08/25/19 11:00 AM VACUUM CLEANER OPERATOR documented as of this encounter Care Teams International Logistics Manager Relationship Specialty Start Date End Date Isai Vazquez MD 4 [facility] [address] [place] [address] PCP - General Family Medicine 05/18/21 08/24/23 Henry Amor MD [address] [place] [address] PCP - General Family Medicine 08/25/23 08/04/24 Nancy Flores APRN [address] [place] [address] PCP - General Advanced Practice Nurse 08/05/24 documented as of this encounter
--- OUTSIDE RECORDS SUMMARY | 2024-09-18 09:33 | XMS_ITS | Clinical Summary ---
Author Organization [facility] Address [address]1 [place] [address] Phone Care Team Providers Care Travel Rn Name Role Phone DeirdredelfinNancy APRN Primary Care Provider [phone] Allergies No known active allergies Medications Aspirin 81 MG Tablet Take 81 mg by mouth daily. Active [place]-3 Fatty Acids (FISH OIL PO) Take 120-180 [...] DM (diabetes mellitus) Vitamin D deficiency Osteopenia Encounters Date Type Department Care Team Description 08/28/2024 12:07 PM MACHINE INKER - 08/28/2024 11:59 PM MACHINE INKER Hospital Encounter [facility] Mammography [address] [facility] [place] [id number] Nancy Flores, WOMENS HEALTH NURSE PRACTITIONER Discharge Disposition: Discharged to home or Selfcare 08/28/2024 Travel 08/05/2024 Transcribe Orders [facility] [address] [place] [address] [place] [address] Nancy Flores, WOMENS HEALTH NURSE PRACTITIONER Encounter for screening mammogram for breast cancer (Primary Dx) from Last 3 Months Immunizations Immunization Administration Dates Next Due Covid-19, Mrna, Lnp-s, Pf, 3 0 Mcg/0.3 Ml Dose ([email or web address]) 09/21/2020,08/31/2020 Influenza Vaccine 04/16/2020, 0,03/26/2018,2014 Influenza Vaccine [...] Comments Blood Pressure 120/62 08/25/2020 11:26 AM MACHINE INKER Pulse 60 08/25/2020 11:26 AM MACHINE INKER Temperature 36.8 C (98.2 F) 08/25/2020 11:26 AM MACHINE INKER Respiratory Rate 18 08/25/2020 11:2 6 AM MACHINE INKER Oxygen Saturation 98% 08/25/2020 11: 26 AM MACHINE INKER Inhaled Oxygen Concentration - - Weight 81.5 kg (179 lb 11.2 oz) 021 11:26 AM MACHINE INKER Height 165.1 cm (5' 5 ) 08/25/2020 11:2 6 AM MACHINE INKER Body Mass Index 29.9 08/25/2020 11:26 AM MACHINE INKER Plan of Treatment Health Maintenance Due Date [...] 05/18/2021 05/18/2020, 01/24/2020, 11/06/2019, Additional history exists SARS-COV-2 Immunization ( season) 2024 05/24/2021, 09/21/2020, 08/31/2020 DTaP/Tdap/Td Immunization Discontinued 03/26/2018, 07/2009 Pneumococcal Immunization (50+ years) Completed 03/26/2018, 02/20/2017, 07/03/2008 Pneumococcal Immunization Combined Discontinued 03/26/2018, 02/20/2017, 07/03/2008 Influenza Immunization Completed , 04/11/2023, 04/18/2022, Additional history exists Hepatitis B Immunization Aged Out No longer eligible based on patient's age to complete this topic Meningococcal Immunization (ACWY) Aged Out No longer eligible based on patient's age to complete this topic Rotavirus Immunization Aged Out No lo nger eligible based on patient's age to complete this topic Procedures Procedure Name Priority Date/Time Associated Diagnosis Comments NICK SCREENING BILATERAL DIGITAL W CAD W ABUNDIO Routine 08/28/2024 12:30 PM MACHINE INKER Encounter for screening mammogram for breast cancer CMP (COMPREHENSIVE METABOLIC PANEL) Routine 05/18/2020 Type 2 diabetes mellitus without complication, unspecified whether parts counterman insulin use (HCC) HEMOGLOBIN A1C W/ ESTIMATED GLUCOSE Routine 05/18/2020 Type 2 diabetes mellitus without complication, unspecified whether parts counterman insulin use (HCC) from Last 3 Months or Most Recently Relevant to Health Maintenance Results * NICK SCREENING BILATERAL DIGITAL W CAD W ABUNDIO (08/28/2024 12:30 PM MACHINE INKER) Anatomical Region Laterality Modality breast Bilateral Mammography 08/28/2024 12:2 7 PM MACHINE INKER Narrative 08/30/2024 5:18 PM MACHINE INKER - NICK SCREENING BILATERAL DIGITAL W CAD W ABUNDIO BILATERAL DIGITAL SCREENING MAMMOGRAM 3D/2D WITH CAD WITH MEDIOLATERAL OBLIQUE CRANIOCAUDAL: 08/28/2024 The study was acquired using digital technology and interpreted from soft copy. Current study was also evaluated with ICAD version 7.2. 2D digital mammographic views, as well as 3D digital tomosynthesis were performed in the CC and MLO projections. CLINICAL: Routine screening. Patient has no complaints. No personal history of cancer. No family history of breast cancer. COMPARISONS: Comparison is made to exams dated: 08/25/2023, 07/19/2022, and 06/09/2021 [facility]. BREAST TISSUE:There are scattered areas of fibroglandular density. FINDINGS: There are benign vascular calcifications in both breasts. No significant masses, calcifications, or other findings are seen in either breast. There has been no significant interval change. IMPRESSION: BENIGN There is no mammographic evidence of malignancy. A 1 year screening mammogram is recommended. A letter will be sent to the patient with these results. The patient will be entered into a reminder system with a target due date of 1 year for her next screening exam. Electronically signed by: Heidi joy/birdie:08/29/2024 22:46:04 Technical Implementation Lead(s): RT Jose(R)(M), [facility] letter sent: Normal Exam Reading location: [facility] Mammogram BI-RADS: Category 2: Benign Procedure Note Heidi Pike MD - 08/30/2024 - NICK SCREENING BILATERAL DIGITAL W CAD W ABUNDIO BILATERAL DIGITAL SCREENING MAMMOGRAM 3D/2D WITH CAD WITH MEDIOLATERAL OBLIQUE CRANIOCAUDAL: 08/28/2024 The study was acquired using digital technology and interpreted from soft copy. Current study was also evaluated with ICAD version 7.2. 2D digital mammographic views, as well as 3D digital tomosynthesis were performed in the CC and MLO projections. CLINICAL: Routine screening. Patient has no complaints. No personal history of cancer. No family history of breast cancer. COMPARISONS: Comparison is made to exams dated: 08/25/2023, 07/19/2022, and 06/09/2021 [facility]. BREAST TISSUE:There are scattered areas of fibroglandular density. FINDINGS: There are benign vascular calcifications in both breasts. No significant masses, calcifications, or other findings are seen in either breast. There has been no significant interval change. IMPRESSION: BENIGN There is no mammographic evidence of malignancy. A 1 year screening mammogram is recommended. A letter will be sent to the patient with these results. The patient will be entered into a reminder system with a target due date of 1 year for her next screening exam. Electronically signed by: Heidi joy/birdie:08/29/2024 22:46:04 Technical Implementation Lead(s): RT Jose(R)(M), [facility] letter sent: Normal Exam Reading location: [facility] Mammogram BI-RADS: Category 2: Benign Nancy Flores APRN IMG MAMMO ORDERABLES Final Result * HEMOGLOBIN A1C W/ ESTIMATED GLUCOSE (05/18/2020) HGB-A1C 7.2 % Blood 05/18/2020 Marianne Elias MD CHEMISTRY ORDERABLES Edited Result - Final * CMP (COMPREHENSIVE METABOLIC PANEL) (05/18/2020) Blood Marianne Elias MD CHEMISTRY ORDERABLES Final Result from Last 3 Months or Most Recently Relevant to Health Maintenance Insurance MEDICARE C [employer]ET[employer] Care Teams Travel Rn Relationship Specialty Start Date End Date Nancy Flores APRN [address] [place] [address] PCP - General Advanced Practice Nurse 08/05/24
--- OUTSIDE RECORDS SUMMARY | 2024-09-18 09:33 | XMS_ITS | Encounter Summary ---
Author Organization [facility] Address [address] [facility] [place] [address] Phone Care Team Providers Care Drawing In Hand Name Role Phone Isai Vazquez MD Primary Care Provider [phone] Henry Amor MD Primary Care Provider [phone] Nancy Flores APRN Primary Care Provider [phone] Reason for Visit * Reason Comments Medication Refill Encounter Details Date Type Department Care Team (Late st Contact Info) Description 12/13/2021 Refill [facility] [address]2 [place] [address] Marianne Elias MD #2 [place] [address] Medication Refill Social History Tobacco Use Types [...] Total Score: 0 08/25/19 21 11:00 AM REAL ESTATE SERVICES ADMINISTRATOR documented as of this encounter Care Teams Drawing In Hand Relationship Specialty Start Date End Date Isai Vazquez MD [address] [place] [address] [address] PCP - General Family Medicine 05/18/21 08/24/23 Henry Amor MD [address] [place] [address] PCP - General Family Medicine 08/25/23 08/04/24 Nancy Flores APRN [address] [place] [address] PCP - General Advanced Practice Nurse 08/05/24 documented as of this encounter
--- OUTSIDE RECORDS SUMMARY | 2024-09-18 09:33 | XMS_ITS | Encounter Summary ---
Author Organization [facility] Address [address] [facility] [place] [address] Phone Care Team Providers Care Bag Sealer Name Role Phone Isai Vazquez MD Primary Care Provider [phone] Henry Amor MD Primary Care Provider [phone] Nancy Flores APRN Primary Care Provider [phone] Reason for Visit * Reason Comments Medication Refill Encounter Details Date Type Department Care Team (Late st Contact Info) Description 11/22/2021 Refill [facility] #2 [place] [address] Marianne Elias MD #2 [place] [address] Medication Refill Social History Tobacco Use Types [...] Total Score: 0 08/25/19 21 11:00 AM TERRAZZO GRINDER documented as of this encounter Care Teams Bag Sealer Relationship Specialty Start Date End Date Isai Vazquez MD [address] [facility] [address] [address] PCP - General Family Medicine 05/18/21 08/24/23 Henry Amor MD [address] [place] [address] PCP - General Family Medicine 08/25/23 08/04/24 Nancy Flores APRN [address] [place] [address] PCP - General Advanced Practice Nurse 08/05/24 documented as of this encounter
== END 2024-09-18 08:55 | disposition home or self-care (01) ==
PROVIDERS: PCP Nurse Practitioner Adult Health; Visit Provider Nurse Practitioner Adult Health
DX: E03.9 Hypothyroidism, unspecified (principal)
CPT/HCPCS: 36415; 84443

== ENCOUNTER 2024-11-05 12:31 | Outpatient (CLI) | payer MEDICARE, SELFPAY ==
--- OUTSIDE RECORDS SUMMARY | 2024-11-05 12:39 | XMS_ITS | Clinical Summary ---
Author Organization [facility] Address [address] [place] [address] Phone Care Team Providers Care Signs Sales Representative Name Role Phone DeirdredelfinNanyc APRN Primary Care Provider [phone] Allergies No known active allergies Medications Aspirin 81 MG Tablet Take 81 mg by mouth daily. Active Max-3 Fatty Acids (FISH OIL PO) Take 120-180 [...] Department Care Team Description 08/28/2024 12:07 PM STRAND AND BINDER CONTROLLER - 08/28/2024 11:59 PM STRAND AND BINDER CONTROLLER Hospital Encounter [facility] [address] [place] [id number] Nancy Flores, SNUFF GRINDER AND SCREENER Discharge Disposition: Discharged to home or Selfcare 08/28/2024 Travel from Last 3 Months Immunizations Immunization Administration Dates Next Due Covid-19, Mrna, Lnp-s, Pf, 3 0 Mcg/0.3 Ml Dose (Pfizer) 09/21/2020,08/31/2020 Influenza Vaccine 04/16/2020, 0,03/26/2018,2014 Influenza Vaccine [...] Comments Blood Pressure 120/62 08/25/2020 11:26 AM STRAND AND BINDER CONTROLLER Pulse 60 08/25/2020 11:26 AM STRAND AND BINDER CONTROLLER Temperature 36.8 C (98.2 F) 08/25/2020 11:26 AM STRAND AND BINDER CONTROLLER Respiratory Rate 18 08/25/2020 11:2 6 AM STRAND AND BINDER CONTROLLER Oxygen Saturation 98% 08/25/2020 11: 26 AM STRAND AND BINDER CONTROLLER Inhaled Oxygen Concentration - - Weight 81.5 kg (179 lb 11.2 oz) 021 11:26 AM STRAND AND BINDER CONTROLLER Height 165.1 cm (5' 5 ) 08/25/2020 11:2 6 AM STRAND AND BINDER CONTROLLER Body Mass Index 29.9 08/25/2020 11:26 AM STRAND AND BINDER CONTROLLER Plan of Treatment Health Maintenance Due Date [...] CAD W ABUNDIO Routine 08/28/2024 12:30 PM STRAND AND BINDER CONTROLLER Encounter for screening mammogram for breast cancer CMP (COMPREHENSIVE METABOLIC PANEL) Routine 05/18/2020 Type 2 diabetes mellitus without complication, unspecified whether snf insulin use (HCC) HEMOGLOBIN A1C W/ ESTIMATED GLUCOSE Routine 05/18/2020 Type 2 diabetes mellitus without complication, unspecified whether customer care consultant insulin use (HCC) from Last 3 Months or Most Recently Relevant to Health Maintenance Results * NICK SCREENING BILATERAL DIGITAL W CAD W ABUNDIO (08/28/2024 12:30 PM STRAND AND BINDER CONTROLLER) Anatomical Region Laterality Modality breast Bilateral Mammography 08/28/2024 12:2 7 PM STRAND AND BINDER CONTROLLER Narrative 08/30/2024 5:18 PM STRAND AND BINDER CONTROLLER - NICK SCREENING BILATERAL DIGITAL W CAD [...] to exams dated: 08/25/2023, 07/19/2022, and 06/09/2021 [facility]. BREAST TISSUE:There are scattered areas [...] next screening exam. Electronically signed by: Heidi joy/penrad:08/29/2024 22:46:04 Freight Car Loader(s): RT Jose(R)(M), [facility]: Normal Exam Reading location: [facility] [...] to exams dated: 08/25/2023, 07/19/2022, and [facility] BREAST TISSUE:There are scattered areas of fibroglandular [...] next screening exam. Electronically signed by: Heidi joy/penrad:08/29/2024 22:46:04 Freight Car Loader(s): Nicol Miranda, RT(R)(M), [facility] letter sent: Normal Exam Reading [...] Maintenance Insurance MEDICARE C AETNA Care Teams Signs Sales Representative Relationship Specialty Start Date End Date Nancy Flores APRN [address] [place] [place] [address] PCP - General Advanced Practice Nurse 08/05/24
--- OUTSIDE RECORDS SUMMARY | 2024-11-05 12:39 | XMS_ITS | Encounter Summary ---
Author Organization [facility] Address [address] [facility] [place] [address] Phone Care Team Providers Care Phlebotomist Lab Assistant Name Role Phone Isai Vazquez MD Primary Care Provider [phone] Henry Amor MD Primary Care Provider [phone] Nancy Flores APRN Primary Care Provider [phone] Reason for Visit * Reason Comments Medication Refill Encounter Details Date Type Department Care Team (Late st Contact Info) Description 10/10/2021 Refill [facility] [address] [place] [address] Marianne Elias MD #[address] [place] [address] Medication Refill Social History Tobacco Use Types [...] Depression Total Score: 0 08/25/19 11:00 AM MINER PICK documented as of this encounter Care Teams Phlebotomist Lab Assistant Relationship Specialty Start Date End Date Isai Vazquez MD 4 [facility] [address] [place] [address] PCP - General Family Medicine 05/18/21 08/24/23 Henry Amor MD [address] [place] [address] PCP - General Family Medicine 08/25/23 08/04/24 Nancy Flores APRN [address] [place] [address] PCP - General Advanced Practice Nurse 08/05/24 documented as of this encounter
--- OUTSIDE RECORDS SUMMARY | 2024-11-05 12:39 | XMS_ITS | Encounter Summary ---
Author Organization [facility] Address [address] [facility] [place] [address] Phone Care Team Providers Care Cap Maker Name Role Phone Isai Vazquez MD Primary Care Provider [phone] Henry Amor MD Primary Care Provider [phone] Nancy Florse APRN Primary Care Provider [phone] Reason for Visit * Reason Comments Medication Refill Encounter Details Date Type Department Care Team (Late st Contact Info) Description 12/13/2021 Refill [facility] #2 [place] [address] Marianne Elias MD [address] [place] [address] Medication Refill Social History Tobacco Use Types [...] Total Score: 0 08/25/19 21 11:00 AM ARTS AND HUMANITIES COUNCIL DIRECTOR documented as of this encounter Care Teams Cap Maker Relationship Specialty Start Date End Date Isai Vazquez MD [address] [place] [address] [address] PCP - General Family Medicine 05/18/21 08/24/23 Henry Amor MD [address] [place] [address] PCP - General Family Medicine 08/25/23 08/04/24 Nancy Flores APRN [address] [place] [address] PCP - General Advanced Practice Nurse 08/05/24 documented as of this encounter
--- OUTSIDE RECORDS SUMMARY | 2024-11-05 12:39 | XMS_ITS | Encounter Summary ---
Author Organization [facility] Address [address] [facility] [place] [address] Phone Care Team Providers Care Sales Office Coordinator Name Role Phone Isai Vazquez MD Primary Care Provider [phone] Henry Amor MD Primary Care Provider [phone] Nancy Flores APRN Primary Care Provider [phone] Reason for Visit * Reason Comments Medication Refill Encounter Details Date Type Department Care Team (Late st Contact Info) Description 11/07/2021 Refill [facility] #2 [place] [address] Marianne Elias MD #[address] [place] [address] Medication Refill Social History Tobacco Use Types [...] Depression Total Score: 0 08/25/19 11:00 AM PLUMBER PIPE FITTING documented as of this encounter Care Teams Sales Office Coordinator Relationship Specialty Start Date End Date Isai Vazquez MD 4 [facility] [address] [place] [address] PCP - General Family Medicine 05/18/21 08/24/23 Henry Amor MD [address] [place] [address] PCP - General Family Medicine 08/25/23 08/04/24 Nancy Flores APRN [address] [place] [address] PCP - General Advanced Practice Nurse 08/05/24 documented as of this encounter
--- OUTSIDE RECORDS SUMMARY | 2024-11-05 12:39 | XMS_ITS | Encounter Summary ---
Author Organization [facility] Address [address] [facility] [place] [address] Phone Care Team Providers Care Retirement Administrator Name Role Phone Isai Vazquez MD Primary Care Provider [phone] Henry Amor MD Primary Care Provider [phone] Nancy Flores APRN Primary Care Provider [phone] Reason for Visit * Reason Comments Medication Refill Encounter Details Date Type Department Care Team (Late st Contact Info) Description 11/22/2021 Refill [facility] #2 [place] [address] Marianne Elias MD #[address] [place] [address] Medication Refill Social History Tobacco Use Types [...] Total Score: 0 08/25/19 21 11:00 AM PARTY PLAN SALES HOST/HOSTESS documented as of this encounter Care Teams Retirement Administrator Relationship Specialty Start Date End Date Isai Vazquez MD 4 [facility] [address] [address] PCP - General Family Medicine 05/18/21 08/24/23 Henry Amor MD [address] [place] [address] PCP - General Family Medicine 08/25/23 08/04/24 Nancy Flores APRN [address] [place] [address] PCP - General Advanced Practice Nurse 08/05/24 documented as of this encounter
== END 2024-11-05 12:32 | disposition home or self-care (01) ==
PROVIDERS: PCP Nurse Practitioner Adult Health; Visit Provider Nurse Practitioner Adult Health
DX: E03.9 Hypothyroidism, unspecified (principal)
CPT/HCPCS: 36415; 84443

== ENCOUNTER 2025-01-07 11:51 | Outpatient (CLI) | payer MEDICARE, SELFPAY ==
--- NOTE | ~2025-01-07 | XR_ITS ---
CHEST RADIOGRAPH, PA AND LATERAL CLINICAL HISTORY: J40 - Bronchitis, not specified as acute or chronic . COMPARISON: None available TECHNIQUE: PA and lateral views of the chest. FINDINGS The cardiomediastinal silhouette is unremarkable. The lungs are clear. IMPRESSION: No focal infiltrate or effusion. Reviewed, dictated and finalized at location A.
[2025-01-07 20:16] LABS: Add Urine Microscopic? YES; Appearance Urine Cloudy (Clear); Glucose Urine UA Negative (Negative); Leukocyte Esterase Ur 3+ LEU/UL (Negative); Nitrate Urine Negative (Negative); Non Pathogenic Casts 0-2; Specific Grav Ur 1.016 (1.001-1.035)
== END 2025-01-07 11:52 | disposition home or self-care (01) ==
LOC: ANHBWCLAB 11:52
PROVIDERS: PCP Nurse Practitioner Adult Health; Visit Provider Nurse Practitioner Adult Health
DX: J40 Bronchitis, not specified as acute or chronic (principal); R39.9 Unspecified symptoms and signs involving the genitourinary system
CPT/HCPCS: 71046; 81001; 87086

== ENCOUNTER 2025-01-22 11:08 | Outpatient (CLI) | payer MEDICARE, SELFPAY ==
--- OUTSIDE RECORDS SUMMARY | 2025-01-22 11:22 | XMS_ITS | Encounter Summary ---
Author Organization [facility] Address [address] [facility] [place] [address] Phone Care Team Providers Care Hoop Rolls Operator Name Role Phone Isai Vazquez MD Primary Care Provider [phone] Henry Amor MD Primary Care Provider [phone] Nancy Flores APRN Primary Care Provider [phone] Reason for Visit * Reason Comments Medication Refill Encounter Details Date Type Department Care Team (Late st Contact Info) Description 11/22/2021 Refill [facility] #2 [place] [address] Marianne Elias MD #[address] [place] [address] Medication Refill Social History Tobacco Use Types [...] Total Score: 0 08/25/19 21 11:00 AM DANCE MASTER documented as of this encounter Care Teams Hoop Rolls Operator Relationship Specialty Start Date End Date Isai Vazquez MD 4 [facility] [address] [address] PCP - General Family Medicine 05/18/21 08/24/23 Henry Amor MD [address] [place] [address] PCP - General Family Medicine 08/25/23 08/04/24 Nancy Flores APRN [address] [place] [address] PCP - General Advanced Practice Nurse 08/05/24 documented as of this encounter
--- OUTSIDE RECORDS SUMMARY | 2025-01-22 11:22 | XMS_ITS | Encounter Summary ---
Author Organization [facility] Address [address] [facility] [place] [address] Phone Care Team Providers Care Aquaculturist Name Role Phone Isai Vazquez MD Primary Care Provider [phone] Henry Amor MD Primary Care Provider Nancy Flores APRN Primary Care Provider [phone] Reason for Visit * Reason Comments Medication Refill Encounter Details Date Type Department Care Team (Late st Contact Info) Description 10/10/2021 Refill [facility] #2 [place] [address] Marianne Elias MD #[address] [place] [address] Medication Refill Social History Tobacco Use Types [...] Depression Total Score: 0 08/25/19 11:00 AM DISINTEGRATOR FEEDER documented as of this encounter Care Teams Aquaculturist Relationship Specialty Start Date End Date Isai Vazquez MD 4 [facility] [address] [place] [address] PCP - General Family Medicine 05/18/21 08/24/23 Henry Amor MD [address] [place] [address] PCP - General Family Medicine 08/25/23 08/04/24 Nancy Flores APRN [address] [place] [address] PCP - General Advanced Practice Nurse 08/05/24 documented as of this encounter
--- OUTSIDE RECORDS SUMMARY | 2025-01-22 11:22 | XMS_ITS | Clinical Summary ---
Author Organization [facility] Address [address] [place] [address] Phone Care Team Providers Care Playground Attendant Name Role Phone DeirdredelfinNancy APRN Primary Care Provider [phone] Allergies No known active allergies Medications Aspirin 81 MG Tablet Take 81 mg by mouth daily. Active [place]ber[place]-3 Fatty Acids (FISH OIL PO) Take 120-180 mg by mouth daily. Active Cholecalciferol (VITAMIN D-3 PO) Take by mouth. Active Multiple Vitamins-Mineral s (MULTIVITAMIN PO) Take by mouth. Active Ascorbic Acid (VITAMIN C PO) Take by mouth. Active Docusate Calcium (STOOL SOFTENER PO) Take by mouth. Active furosemide (LASIX) 20 MG Tablet Take 1 Tab by mouth daily as needed. For leg swelling 90 Tab 3 0 Active gabapentin (NEURONTIN) 300 MG Capsule TAKE 1 CAPSULE BY MOUTH EVERY NIGHT 90 Cap 1 Active metoprolol tartrate (LOPRESSOR) 25 MG Tablet TAKE 1 TABLET BY MOUTH EVERY DAY 90 Tab 1 Active OneTouch Delica Lancets 33G Misc Test once daily 6 Active simvastatin (ZOCOR) 20 MG Tablet TAKE 1 TABLET BY MOUTH EVERY DAY IN THE EVENING 90 Tablet 2 1 Active levothyroxine (SYNTHROID) 50 MCG Tablet TAKE 1 TABLET BY MOUTH EVERY DAY 90 Tablet 2 1 Active pioglitazone (ACTOS) 15 MG Tablet TAKE 1 TABLET BY MOUTH EVERY DAY 90 Tablet 1 1 Active amLODIPine (NORVASC) 5 MG Tablet TAKE 1 TABLET BY MOUTH EVERY DAY 90 Tablet 1 Active lisinopril (PRINIVIL, ZESTRIL) 10 MG Tablet TAKE 1 TABLET BY MOUTH EVERY DAY 90 Tablet 1 1 Active metFORMIN (GLUCOPHAGE) 1000 MG Tablet TAKE 1 TABLET BY MOUTH TWICE A DAY WITH MEALS 180 Tablet 1 1 Active glipiZIDE (GLUCOTROL) 10 MG Tablet TAKE 1 TABLET BY MOUTH TWICE A DAY WITH MEALS 180 Tablet 1 Active azithromycin (ZITHROMAX) 250 MG TabletIndication s:Bacterial upper respiratory infection Take 2 Tablets by mouth daily for 1 day, THEN 1 Tablet daily for 4 days. 2 tab(s) daily for 1 day, then 1 tab(s) daily for days 2-5. 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 DM (diabetes mellitus) Vitamin D deficiency Osteopenia Encounters Date Type Department Care Team Description 01/06/2025 10:15 AM CDT Urgent Care Visit [facility] [place] [address] [place] [address] Brijesh Peguero, PAC Bacterial upper respiratory infection (Primary Dx) Discharge Disposition: Discharged to home or Selfcare 01/06/2025 Travel from Last 3 Months Immunizations Immunization Administration Dates Next Due Covid-19, Mrna, Lnp-s, Pf, 3 0 Mcg/0.3 Ml Dose (Starfish 360) 09/21/2020,08/31/2020 Influenza Vaccine 04/16/2020, 0,03/26/2018,2014 Influenza Vaccine [...] Sign Reading Time Taken Comments Blood Pressure 142/84 01/06/2025 10:16 AM CDT Pulse 80 01/06/2025 10:16 AM CDT Temperature 36.7 C (98.1 F) 01/06/2025 10:16 AM CDT Respiratory Rate 17 01/06/2025 10:1 6 AM CDT Oxygen Saturation 93% 01/06/2025 10: 16 AM CDT Inhaled Oxygen Concentration - - Weight 81.5 kg (179 lb 11.2 oz) 021 11:26 AM GROOVING MACHINE OPERATOR Height 165.1 cm (5' 5) 08/25/2020 11:2 6 AM GROOVING MACHINE OPERATOR Body Mass Index 29.9 08/25/2020 11:26 AM GROOVING MACHINE OPERATOR Plan of Treatment Health Maintenance Due Date [...] Immunization ( season) 2024 05/24/2021, 09/21/2020, 08/31/2020 Influenza Immunization (#1) 03/03/202504/03, 04/11/2023, 04/18/2022, Additional history exists Td Immunization Every 10 Years (Adults With 1 Tdap) 03/26/2028 03/26/2018, 04/02/2010 DTaP/Tdap/Td Immunization Discontinued 03/26/2018, 07/2009 Pneumococcal Immunization (50+ years) Completed 03/26/2018, 02/20/2017, 07/03/2008 Pneumococcal Immunization Combined Discontinued 03/26/2018, 02/20/2017, 07/03/2008 Hepatitis B Immunization Aged Out No longer eligible based on patient's age to complete this topic Human Papillomavirus (HPV) Immunization Aged Out No longer eligible based [...] 2 diabetes mellitus without complication, unspecified whether termite treater insulin use (HCC) HEMOGLOBIN A1C W/ ESTIMATED GLUCOSE Routine 05/18/2020 Type 2 diabetes mellitus without complication, unspecified whether termite treater insulin use (HCC) from Last 3 Months [...] Maintenance Insurance MEDICARE C AETNA Care Teams Playground Attendant Relationship Specialty Start Date End Date Nancy Flores APRN [address] [place] [id number] PCP - General Advanced Practice Nurse 08/05/24
--- OUTSIDE RECORDS SUMMARY | 2025-01-22 11:22 | XMS_ITS | Encounter Summary ---
Author Organization [facility] Address [address] [facility] [place] [address] Phone Care Team Providers Care Social Media Assistant Name Role Phone Isai Vazquez MD Primary Care Provider [phone] Henry Amor MD Primary Care Provider [phone] Nancy Flores APRN Primary Care Provider [phone] Reason for Visit * Reason Comments Medication Refill Encounter Details Date Type Department Care Team (Late st Contact Info) Description 12/13/2021 Refill [facility] - Family [facility] [address] [place] [address] Marianne Elias MD [address] [place] [address] Medication Refill Social History Tobacco Use Types [...] Total Score: 0 08/25/19 21 11:00 AM 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
--- OUTSIDE RECORDS SUMMARY | 2025-01-22 11:22 | XMS_ITS | Encounter Summary ---
Author Organization [facility] Address [address] [facility] [place] [address] Phone Care Team Providers Care Pneumatic Press Hand Name Role Phone Isai Vazquez MD Primary Care Provider [phone] Henry Amor MD Primary Care Provider [phone] Nancy Flores APRN Primary Care Provider [phone] Reason for Visit * Reason Comments Medication Refill Encounter Details Date Type Department Care Team (Late st Contact Info) Description 11/07/2021 Refill [facility] - Family Medicine [facility] [address] [place] [address] Marianne Elias MD [address] [place] [address] Medication Refill Social History Tobacco Use Types [...] Depression Total Score: 0 08/25/19 11:00 AM FURNITURE UPHOLSTERER APPRENTICE documented as of this encounter Care Teams Pneumatic Press Hand Relationship Specialty Start Date End Date Isai Vazquez MD [address] [facility] [address] [place] [address] PCP - General Family Medicine 05/18/21 08/24/23 Henry Amor MD [address] [place] [address] PCP - General Family Medicine 08/25/23 08/04/24 Nancy Flores APRN [address] [place] [address] PCP - General Advanced Practice Nurse 08/05/24 documented as of this encounter
[2025-01-22 18:32] LABS: Add Urine Microscopic? YES; Appearance Urine Clear (Clear); Glucose Urine UA Negative (Negative); Leukocyte Esterase Ur 1+ LEU/UL (Negative); Need Manual Microscopic Reviewed; Nitrate Urine Negative (Negative); Non Pathogenic Casts 0-2; Specific Grav Ur 1.017 (1.001-1.035)
[2025-01-22 18:34] LABS: Alanine Aminotransferase 26 U/L (6-35); Albumin Level 4.3 g/dL (3.5-5.1); Alkaline Phosphatase 72 U/L (38-126); Anion Gap 7 mmol/L (4-12); Aspartate Amino Transferase 61 U/L (14-36); Bilirubin,Total 0.5 mg/dL (0.2-1.3); Blood Urea Nitrogen 16 mg/dL (7-17); Calcium 10.6 mg/dL (8.4-10.2); Carbon Dioxide 30 mmol/L (22-30); Chloride 101 mmol/L (98-107); Cholesterol 201 mg/dL (0-200); Estimated Glomerular Filt Rate 54; Glucose 149 mg/dL (65-110); HDL Direct 46 mg/dL; Potassium 5.1 mmol/L (3.4-5.0); Sodium 138 mmol/L (137-145); Total Protein 7.7 g/dL (6.3-8.2); Triglycerides 281 mg/dL (<150)
[2025-01-22 18:41] LABS: Hemoglobin A1C 7.5 % (<5.7)
[2025-01-22 18:51] LABS: MALB Creatinine Ratio 8.9 mg/g (0-30)
[2025-01-22 19:10] LABS: Thyroid Stimulating Hormone 0.535 uIU/mL (0.465-4.680)
== END 2025-01-22 11:09 | disposition home or self-care (01) ==
LOC: ANHBWCLAB 11:10
PROVIDERS: PCP Nurse Practitioner Adult Health; Visit Provider Nurse Practitioner Adult Health
DX: E83.52 Hypercalcemia (principal); R79.89 Other specified abnormal findings of blood chemistry; E11.9 Type 2 diabetes mellitus without complications; R39.9 Unspecified symptoms and signs involving the genitourinary system
CPT/HCPCS: 36415; 80053; 80061; 81001; 82043; 82565; 83036; 84443

== ENCOUNTER 2025-02-03 11:41 | Outpatient (CLI) | payer MEDICARE, SELFPAY ==
--- OUTSIDE RECORDS SUMMARY | 2025-02-03 12:01 | XMS_ITS | Clinical Summary ---
Author Organization [facility] Address [address] [place] [address] Phone Care Team Providers Care Converter Operator Name Role Phone DeirdredelfinNancy APRN Primary Care Provider [phone] Allergies No known active allergies Medications Aspirin 81 MG Tablet Take 81 mg by mouth daily. Active [place]iggins-3 Fatty Acids (FISH OIL PO) Take 120-180 [...] Care Visit [facility] [place] [address] [place] [address] Brijesh Peguero, PAC Bacterial upper respiratory infection (Primary Dx) Discharge Disposition: Discharged to home or Selfcare 01/06/2025 Travel from Last 3 Months Immunizations Immunization Administration Dates Next Due Covid-19, Mrna, Lnp-s, Pf, 3 0 Mcg/0.3 Ml Dose (UrbanBound) 09/21/2020,08/31/2020 Influenza Vaccine 04/16/2020, 0,03/26/2018,2014 Influenza Vaccine [...] (179 lb 11.2 oz) 021 11:26 AM OPERATIONS SYSTEMS SPECIALIST Height 165.1 cm (5' 5) 08/25/2020 11:2 6 AM OPERATIONS SYSTEMS SPECIALIST Body Mass Index 29.9 08/25/2020 11:26 AM OPERATIONS SYSTEMS SPECIALIST Plan of Treatment Health Maintenance Due Date [...] 2 diabetes mellitus without complication, unspecified whether intermediate insulin use (HCC) HEMOGLOBIN A1C W/ ESTIMATED GLUCOSE Routine 05/18/2020 Type 2 diabetes mellitus without complication, unspecified whether intermediate insulin use (HCC) from Last 3 [...] Maintenance Insurance MEDICARE C AETNA Care Teams Converter Operator Relationship Specialty Start Date End Date Nancy Flores APRN [address] [place] [address] PCP - General Advanced Practice Nurse 08/05/24
--- OUTSIDE RECORDS SUMMARY | 2025-02-03 12:02 | XMS_ITS | Encounter Summary ---
Author Organization [facility] Address [address] [facility] [place] [address] Phone Care Team Providers Care Welding Instructor Name Role Phone Isai Vazquez MD Primary Care Provider [phone] Henry Amor MD Primary Care Provider [phone] Nancy Flores APRN Primary Care Provider [phone] Reason for Visit * Reason Comments Medication Refill Encounter Details Date Type Department Care Team (Late st Contact Info) Description 12/13/2021 Refill [facility] - Family Medicine [facility] [address] [place] [address] [place] [address] [place] [address] Medication Refill Social History Tobacco Use Types [...] Total Score: 0 08/25/19 21 11:00 AM TARIFF COMPILER documented as of this encounter Care Teams Welding Instructor Relationship Specialty Start Date End Date Isai Vazquez MD [address] [place] [address] [place] [address] PCP - General Family Medicine 05/18/21 08/24/23 Henry Amor MD [address] [place] [address] PCP - General Family Medicine 08/25/23 08/04/24 Nancy Flores, BARREL CAP SETTER [address] [place] [address] PCP - General Advanced Practice Nurse 08/05/24 documented as of this encounter
--- OUTSIDE RECORDS SUMMARY | 2025-02-03 12:02 | XMS_ITS | Encounter Summary ---
Author Organization [facility] Address [address] [facility] [place] [address] Phone Care Team Providers Care Ornamental Machine Operator Name Role Phone Isai Vazquez MD Primary Care Provider [phone] Henry Amor MD Primary Care Provider [phone] Nancy Flores APRN Primary Care Provider [phone] Reason for Visit * Reason Comments Medication Refill Encounter Details Date Type Department Care Team (Late st Contact Info) Description 11/07/2021 Refill [facility] - Family Medicine [facility] [address] [place] [address] [place] [address] [place] [address] Medication Refill Social History Tobacco Use Types [...] Depression Total Score: 0 08/25/19 11:00 AM GAMING PIT BOSS documented as of this encounter Care Teams Ornamental Machine Operator Relationship Specialty Start Date End Date Isai Vazquez MD 4 [facility] [address] [address] PCP - General Family Medicine 05/18/21 08/24/23 Henry Amor MD [address] [place] [address] PCP - General Family Medicine 08/25/23 08/04/24 Nancy Flores APRN [address] [place] [address] PCP - General Advanced Practice Nurse 08/05/24 documented as of this encounter
--- OUTSIDE RECORDS SUMMARY | 2025-02-03 12:02 | XMS_ITS | Encounter Summary ---
Author Organization [facility] Address [address] [facility] [place] [address] Phone Care Team Providers Care Coffin Maker Name Role Phone Isai Vazquez MD Primary Care Provider [phone] Henry Amor MD Primary Care Provider [phone] Nancy Flores APRN Primary Care Provider [phone] Reason for Visit * Reason Comments Medication Refill Encounter Details Date Type Department Care Team (Late st Contact Info) Description 10/10/2021 Refill [facility] - Family Medicine [facility] [address] [place] [address] [place] [address] [place] [address] Medication Refill Social History Tobacco Use Types [...] Depression Total Score: 0 08/25/19 11:00 AM TRADING ASSISTANT documented as of this encounter Care Teams Coffin Maker Relationship Specialty Start Date End Date Isai Vazquez MD 4 [facility] [address] [address] PCP - General Family Medicine 05/18/21 08/24/23 Henry Amor MD [address] [place] [address] PCP - General Family Medicine 08/25/23 08/04/24 Nancy Flores APRN [address] [place] [address] PCP - General Advanced Practice Nurse 08/05/24 documented as of this encounter
--- OUTSIDE RECORDS SUMMARY | 2025-02-03 12:02 | XMS_ITS | Encounter Summary ---
Author Organization [facility] Address [address] [facility] [place] [address] Phone Care Team Providers Care Adjuster Leader Name Role Phone Isai Vazquez MD Primary Care Provider [phone] Henry Amor MD Primary Care Provider [phone] Nancy Flores APRN Primary Care Provider [phone] Reason for Visit * Reason Comments Medication Refill Encounter Details Date Type Department Care Team (Late st Contact Info) Description 11/22/2021 Refill [facility] - Family Medicine [facility] [address] [place] [address] [place] [address] [place] [address] Medication Refill Social History Tobacco Use Types [...] Depression Total Score: 0 08/25/19 11:00 AM ELECTRIC MELT OPERATOR documented as of this encounter Care Teams Adjuster Leader Relationship Specialty Start Date End Date Isai Vazquez MD 4 [facility] [address] [facility] [place] [address] PCP - General Family Medicine 05/18/21 08/24/23 Henry Amor MD [address] [place] [address] PCP - General Family Medicine 08/25/23 08/04/24 Nancy Flores APRN [address] [place] [address] PCP - General Advanced Practice Nurse 08/05/24 documented as of this encounter
[2025-02-03 19:14] LABS: Anion Gap 6 mmol/L (4-12); Blood Urea Nitrogen 13 mg/dL (7-17); Calcium 9.8 mg/dL (8.4-10.2); Carbon Dioxide 29 mmol/L (22-30); Chloride 104 mmol/L (98-107); Estimated Glomerular Filt Rate 55; Glucose 94 mg/dL (65-110); Potassium 4.9 mmol/L (3.4-5.0); Sodium 139 mmol/L (137-145)
== END 2025-02-03 11:42 | disposition home or self-care (01) ==
LOC: ANHBWCLAB 11:42
PROVIDERS: PCP Nurse Practitioner Adult Health; Visit Provider Nurse Practitioner Adult Health
DX: E83.52 Hypercalcemia (principal)
CPT/HCPCS: 36415; 80048; 82306